=== PATIENT | female | born 2000 | race African-American/Black ===

== ENCOUNTER 2019-07-01 20:54 | Emergency (ER) | payer SELFPAY ==
[~2019-07-01] VITALS: Ht 165.1 cm; Wt 90.9 kg
[2019-07-01 22:00] VITALS: BP 115/64
[2019-07-01] MEDS ORDERED: IBUPROFEN 800 MG TABLET PO ONE (22:15)
== END 2019-07-01 22:26 | disposition home or self-care (01) ==
LOC: EMS 20:57
DX: R10.12 Left upper quadrant pain (principal)

== ENCOUNTER 2020-04-30 15:53 | Emergency (ER) | payer MEDICAID ==
[~2020-04-30] VITALS: Ht 165.1 cm; Wt 109.1 kg
[2020-04-30 18:48] VITALS: BP 133/77
== END 2020-04-30 18:50 | disposition home or self-care (01) ==
LOC: EMS 15:53
DX: G56.22 Lesion of ulnar nerve, left upper limb (principal); F12.90 Cannabis use, unspecified, uncomplicated

== ENCOUNTER 2021-01-26 11:33 | Emergency (ER) | payer MEDICAID ==
[~2021-01-26] VITALS: Ht 175.3 cm; Wt 113.6 kg
[2021-01-26 11:34] VITALS: BP 134/88
[2021-01-26 15:39] LABS: BASOPHILS % (AUTO) 0.2 % (0.0-2.0); EOSINOPHILS % (AUTO) 1.3 % (1.0-6.0); HEMATOCRIT 38.6 % (36-46); HEMOGLOBIN 12.8 g/dL (12.0-16.0); LYMPHOCYTES % (AUTO) 26.3 % (22.0-44.0); MEAN CORPUSCULAR HEMOGLOBIN 28.9 pg (26.0-34.0); MEAN CORPUSCULAR HGB CONC 33.1 G/dL (31.0-37.0); MEAN CORPUSCULAR VOLUME 87 fL (80-100); MONOCYTES # (AUTO) 0.5 K/uL (0.1-1.0); NEUTROPHILS % (AUTO) 65.2 % (40.0-70.0); PLATELET COUNT (AUTO) 230 K/uL (150-450); RED BLOOD CELL COUNT(AUTO) 4.44 MIL/uL (4.00-5.20); RED CELL DISTRIBUTION WIDTH 13.6 % (11.5-14.5)
[2021-01-26 15:47] LABS: ANION GAP 10 mmol/L (8-16); CALCIUM, TOTAL 8.8 mg/dL (8.8-10.5); CARBON DIOXIDE 24 mmol/L (22-29); CHLORIDE 104 mmol/L (98-107); CREATININE 0.71 mg/dL (0.60-1.30); GLOMERULAR FILTR. RATE CALC > 60 mL/min (>60); GLUCOSE,RANDOM 95 mg/dL (70-110); SODIUM SERUM 138 mmol/L (136-145); UREA NITROGEN, BLOOD 13 mg/dL (7-18)
[2021-01-26 15:53] LABS: ALANINE AMINOTRANSFERASE 24 U/L (12-78); ALKALINE PHOSPHATASE 98 U/L (46-116); ASPARTATE AMINOTRANSFERASE 18 U/L (15-37); BILIRUBIN,TOTAL 0.2 mg/dL (0.1-1.0); TOTAL PROTEIN, SERUM 7.5 g/dL (6.4-8.2)
== END 2021-01-26 16:35 | disposition home or self-care (01) ==
LOC: EMS 11:47
DX: R07.9 Chest pain, unspecified (principal); R12 Heartburn
CPT/HCPCS: 71046; 80053; 84484; 85025; 93005; 99285; 36415-L1; 36415-TC

== ENCOUNTER 2023-12-11 10:02 | Emergency (ER) | payer MEDICAID ==
[~2023-12-11] VITALS: Ht 167.6 cm; Wt 90.9 kg
[2023-12-11 10:15] VITALS: BP 128/79; PULSE 67; RESP 18; TEMP 98.4
[2023-12-11 11:25] LABS: APPEARANCE,URINE HAZY (CLEAR); BILIRUBIN,URINE NEGATIVE (NEGATIVE); COLOR,URINE YELLOW (YELLOW); GLUCOSE, URINE (UA) NEGATIVE (NEGATIVE); KETONES,URINE NEGATIVE (NEGATIVE); LEUKOCYTE ESTERASE ,URINE LARGE (NEGATIVE); NITRATE,URINE NEGATIVE (NEGATIVE); OCCULT BLOOD,URINE SMALL (NEGATIVE); PH,URINE 5.5 (5.0-8.0); PROTEIN,URINE 30-70 mg/dL (NEGATIVE); SPECIFIC GRAVITIY, URINE 1.035 (1.003-1.030); UROBILINOGEN,URINE <=1.0 mg/dL (<=1.0)
[2023-12-11 11:33] LABS: BACTERIA,URINE Many /HPF (None Seen); SQUAMOUS EPITHELIAL CELL,UR Many /LPF (None Seen); WBC,URINE 26-50 /HPF (0-5)
[2023-12-11] MEDS: CefTRIAXone SODIUM 1 GM/VIAL IM ONE (12:03)
[2023-12-11] MEDS: AZITHROMYCIN 500 MG TABLET PO ONE (12:03)
[2023-12-11] MEDS: LIDOCAINE/PF 1% 2 ML VIAL IM ONE (12:03)
[2023-12-11] MEDS ORDERED: ACYC-138 PO (12:32)
== END 2023-12-11 13:20 | disposition home or self-care (01) ==
LOC: EMS 10:02
DX: A60.04 Herpesviral vulvovaginitis (principal); F12.90 Cannabis use, unspecified, uncomplicated
CPT/HCPCS: 99283; 81001; 84703; 36415; 87086; 87186; 87491; 87591; 96372; J0696; J3490; Q9967